=== PATIENT | male | born 1955 | race Caucasian/White ===

== ENCOUNTER → 2017-08-04 | Outpatient (CLI) | payer MEDICARE ==
[~2017-08-04] MED LIST: ABILIFY5 MG PO; ARIPIPRAZOLE15 MG PO; ATORVASTATIN CA10 M1 PO; HYDROCODONE BIT1 T11 PO; MOTRIN800 MG PO; Motrin,Rufen800 MG PO; NORVASC5 MG PO; PERCOCET 325 MG1 TA7 PO; SIMVASTATIN5 MG PO
== END | disposition home or self-care (01) ==
LOC: CARD 10:41
DX: R07.9 Chest pain, unspecified (principal)